=== PATIENT | female | born 1985 | race Caucasian/White ===

== ENCOUNTER 2016-10-27 23:46 | Inpatient (IN) | payer OTHER ==
[~2016-10-27] VITALS: Ht 170.2 cm; Wt 71.0 kg
[~2016-10-27 23:46] MED LIST: B12-1CHW PO; CALC600T21 PO; MULT1TAB18 PO; PRENTAB9 PO; VITA200016 PO
[2016-10-28] MEDS ORDERED: LR 1,000 ML IV SCH (01:01)
[2016-10-28] MEDS ORDERED: OXYTOCIN DRIP 30 UNITS in APPROPRIATE DILUENT 1 EA IV SCH ×2 (01:15→18:45)
[2016-10-28 01:32] LABS: MEAN CORPUSCULAR HEMOGLOBIN 34.7 pg (27.0-33.0); MEAN CORPUSCULAR HGB CONC 36.3 g/dl (32.0-36.5); MEAN CORPUSCULAR VOLUME 95.6 fl (80.0-96.0); RED CELL DISTRIBUTION WIDTH 12.6 % (11.5-14.5); WHITE BLOOD COUNT 8.3 K/mm3 (4.0-10.0)
[2016-10-28] MEDS ORDERED: PROMETHAZINE INJ 25 MG/ML VIAL (J2550) IV ONE (02:15)
[2016-10-28] MEDS ORDERED: BUTORPHANOL 2 MG/ML INJ (J0595) IV ONE ×2 (02:15→14:30)
--- NOTE | 2016-10-28 03:57 | HPE ---
DATE OF ADMISSION: 10/28/2016 31-year-old, (G) 2, para (P) 0-0-1-0 female at 39-1/7 weeks gestation by last menstrual period (LMP) consistent with 10-week ultrasound, estimated date of confinement (EDC) of 11/02/2016, presents with regular contractions every 5 minutes for the last several hours. She denies vaginal bleeding. There is good movement. COURSE: The patient initiated care at 10 weeks gestation on 04/06/2016. Her first trimester blood pressure was 110/70. Due to history of gastric bypass, she did not do diabetes testing. Testing for blood sugars randomly was normal. She had adequate growth ultrasounds during . MEDICAL HISTORY: Obesity. SURGICAL HISTORY: 1. Gastric bypass 2014. 2. Ankle surgery 2003. 3. Tonsillectomy 2002. ALLERGIES: PENICILLIN, BIAXIN. SOCIAL HISTORY: The patient is . She denies cigarettes, alcohol or drug use during . FAMILY HISTORY: Noncontributory. PHYSICAL EXAMINATION: VITAL SIGNS: Blood pressure 108/78, weight 206. She appears moderately uncomfortable. HEAD/NECK: Examination normal. LUNGS: Clear. HEART: Regular rate and rhythm. ABDOMEN: Nontender. Gravid. heart tones category 1. Contractions every 5-7 minutes. Cervix 3 cm, 70%, -2 station, vertex, posterior. EXTREMITIES: Nontender. LABORATORIES: Blood type O positive. Rubella nonimmune. Group B Streptococcus (GBS) negative on 10/02/2016. ASSESSMENT: 31-year-old (G) 2 para (P) 0-0-1-0 female at 39-1/7 weeks gestation presents in early labor. Patient is admitted on 10/28/2016.
[2016-10-28] MEDS ORDERED: SODIUM CHLORIDE NASAL 0.65% SPRAY BTL (OCEAN) PRN (07:30)
[2016-10-28] MEDS ORDERED: FENTANYL 2MCG/ML ROPIVACAINE 0.2% NACL 250 ML CADD As Ordered ONE (14:23)
[2016-10-28] MEDS ORDERED: NALOXONE INJ 0.4 MG/1 ML VIAL (J2310) IV PRN (15:45)
[2016-10-28] MEDS ORDERED: REFRIGERATOR IV KEYS XX PRN (15:45)
[2016-10-28] MEDS ORDERED: EPIDURAL/PCA KEYS XX PRN (15:45)
[2016-10-28] MEDS ORDERED: FENTANYL/ROPIVACAINE/NACL CADD 250 ML EPIDURAL SCH (15:45)
[2016-10-28] MEDS ORDERED: EPIDURAL COMMENT XX SCH (15:45)
[2016-10-28] MEDS ORDERED: LACTATED RINGER'S 1000 ML IV PRN (15:45)
[2016-10-28] MEDS ORDERED: ONDANSETRON 4MG/2ML VIAL (J2405) IV PRN ×2 (15:45→18:15)
[2016-10-28] MEDS ORDERED: diphenhydrAMINE INJ 50MG/ML VIAL (J1200) IV PRN (15:45)
[2016-10-28] MEDS ORDERED: ePHEDrine SULFATE 25 MG/5 ML(5MG/ML) SYRINGE IV PRN (15:45)
[2016-10-28] MEDS ORDERED: IBUPROFEN 800 MG TAB PO PRN (18:15)
[2016-10-28] MEDS ORDERED: ACETAMINOPHEN 500 MG TAB PO PRN (18:15)
[2016-10-28] MEDS ORDERED: MEASLES,MUMPS,RUBELLA VACCINE INJ (MMR-II) (90707) SC SCH (18:15)
[2016-10-28] MEDS ORDERED: RHOGAM 300 MCG (1500 IU) INJ (J2790) IM SCH (18:15)
[2016-10-28] MEDS ORDERED: DOCUSATE SODIUM 100 MG CAP PO PRN (18:15)
[2016-10-28] MEDS ORDERED: METHYLERGONOVINE MALEATE 0.2 MG TAB PO PRN (18:15)
[2016-10-28] MEDS ORDERED: DIBUCAINE 1% OINTMENT 30GM TOP PRN (18:15)
--- NOTE | 2016-10-28 18:28 | DN ---
DATE: 10/18/2016 PREDELIVERY DIAGNOSIS: 39 plus weeks, labor. POSTDELIVERY DIAGNOSIS: Delivered. PROCEDURE: Spontaneous vaginal delivery. MAT MAN: Dr. Jas Pineda. ANESTHESIA: Epidural. ESTIMATED BLOOD LOSS: 300 mL. FINDINGS: 7 pounds 12 ounces female with scores 7 and 8. DELIVERY SUMMARY: After a short second stage, the patient had spontaneous delivery of a 7 pound 12 ounce female with scores 7 and 8 under epidural anesthesia. Tight nuchal cord times one was clamped and cut on the perineum. Shoulders delivered spontaneously with ease. The infant was handed to the mother. Infant cried spontaneously. The placenta delivered easily and appeared intact. The patient received intravenous (IV) Pitocin immediately after delivery of placenta. Second-degree perineal laceration was repaired with 3-0 chromic in the usual fashion. Sponge and needle counts are correct.
[2016-10-28] MEDS ORDERED: OXYTOCIN DRIP 30 UNITS in APPROPRIATE DILUENT 1 EA IV ONE (18:45)
[2016-10-29 00:28] VITALS: BP 114/58
[2016-10-29 05:52] VITALS: BP 109/64
[2016-10-29] MEDS: PRENATAL VITAMIN TAB PO SCH (07:22)
[2016-10-29 18:28] VITALS: BP 124/76
[2016-10-30 06:00] VITALS: BP 107/70
[2016-10-30] MEDS: PRENATAL VITAMIN TAB PO SCH (08:29)
[2016-10-30] MEDS ORDERED: IBUP-1114 PO (09:44)
[2016-10-30] MEDS ORDERED: ACET50TA PO (09:44)
[2016-10-30] MEDS ORDERED: PRENTAB9 PO (09:44)
== END 2016-10-30 10:20 | disposition home or self-care (01) | DRG 560 ==
LOC: M LDO 23:46 → M LDI 10-28 00:41 → M OBS 10-28 19:41
PROVIDERS: ADMIT Specialist; ATTEND Specialist
PROC: 10E0XZZ Delivery of Products of Conception, External Approach (ICD-10-PCS; principal; 2016-10-28)
PROC: 0KQM0ZZ Repair Perineum Muscle, Open Approach (ICD-10-PCS; 2016-10-28)
PROC: 10907ZC Drainage of Amniotic Fluid, Therapeutic from Products of Conception, Via Natural or Artificial Opening (ICD-10-PCS; 2016-10-28)
DX: O99.844 Bariatric surgery status complicating childbirth (principal); Z37.0 Single live birth; Z3A.39 39 weeks gestation of pregnancy; O70.1 Second degree perineal laceration during delivery

== ENCOUNTER 2017-12-04 12:10 | Emergency (ER) | payer OTHER ==
[2017-12-04] MEDS: NS 1,000 ML IV (13:00)
[2017-12-04] MEDS: METOCLOPRAMIDE INJ 10MG/2ML VIAL (J2765) IV (13:00)
[2017-12-04 13:28] LABS: BASO % 0.3 % (0.0-1.0); HEMATOCRIT 33.4 % (36.0-47.0); HEMOGLOBIN 11.8 g/dl (12.0-16.0); LYMPH # 0.4 10^3/uL (1.5-4.5); LYMPH % 7.1 % (24.0-44.0); MEAN CORPUSCULAR HEMOGLOBIN 34.2 pg (27.0-33.0); MEAN CORPUSCULAR HGB CONC 35.3 g/dl (32.0-36.5); MEAN CORPUSCULAR VOLUME 96.8 fl (80.0-96.0); MONO # 0.3 10^3/uL (0.0-0.8); MONO % 5.1 % (0.0-5.0); NEUTROPHILS # 5.2 10^3/uL (1.8-7.7); NEUTROPHILS % 85.5 % (36.0-66.0); PLATELET COUNT, AUTOMATED 206 10^3/uL (150-450); RED BLOOD COUNT 3.45 10^6/uL (4.00-5.40); RED CELL DISTRIBUTION WIDTH 12.7 % (11.5-14.5); WHITE BLOOD COUNT 6.1 10^3/uL (4.0-10.0)
[2017-12-04 13:35] LABS: APPEARANCE, URINE HAZY (CLEAR); BACTERIA, URINE AUTO NEGATIVE (NEGATIVE); BILIRUBIN, URINE AUTO NEGATIVE (NEGATIVE); BLOOD, URINE BLOOD NEGATIVE (NEGATIVE); COLOR, URINE AMBER (YELLOW); GLUCOSE, URINE (UA) AUTO NEGATIVE (NEGATIVE); KETONE, URINE AUTO 2+ mg/dL (NEGATIVE); LEUKOCYTE ESTERASE, URINE AUTO TRACE (NEGATIVE); MUCUS, URINE SMALL (NEGATIVE); NITRITE, URINE AUTO NEGATIVE (NEGATIVE); PROTEIN, URINE AUTO 1+ mg/dL (NEGATIVE); RBC, URINE AUTO 4 /HPF (0-3); SPECIFIC GRAVITY URINE AUTO 1.028 (1.002-1.035); SQUAMOUS EPITHELIAL CELL UR AU 1 /HPF (0-6); WBC, URINE AUTO 5 /HPF (0-3)
[2017-12-04 14:05] LABS: ALBUMIN 2.9 GM/DL (3.2-5.2); ALBUMIN/GLOBULIN RATIO 0.94 (1.00-1.93); ALKALINE PHOSPHATASE 93 U/L (45-117); ALT/SGPT 15 U/L (12-78); ANION GAP 8 MEQ/L (8-16); AST/SGOT 12 U/L (7-37); BILIRUBIN,TOTAL 0.6 MG/DL (0.2-1.0); BLOOD UREA NITROGEN 7 MG/DL (7-18); CALCIUM LEVEL 8.4 MG/DL (8.5-10.1); CARBON DIOXIDE LEVEL 23 MEQ/L (21-32); CHLORIDE LEVEL 104 MEQ/L (98-107); CREATININE FOR GFR 0.46 MG/DL (0.55-1.30); GLOMERULAR FILTRATION RATE > 60.0 (>60); GLUCOSE, FASTING 80 MG/DL (70-100); POTASSIUM SERUM 3.8 MEQ/L (3.5-5.1); SODIUM LEVEL 135 MEQ/L (136-145)
[2017-12-04] MEDS: ONDANSETRON 4MG/2ML VIAL (J2405) IV (14:15)
== END 2017-12-04 15:27 | disposition home or self-care (01) ==
LOC: M ED 12:10
DX: O21.9 Vomiting of pregnancy, unspecified (principal); Z3A.01 Less than 8 weeks gestation of pregnancy; Z79.2 Long term (current) use of antibiotics; Z79.899 Other long term (current) drug therapy; Z88.1 Allergy status to other antibiotic agents; Z88.0 Allergy status to penicillin; Z87.09 Personal history of other diseases of the respiratory system; Z98.890 Other specified postprocedural states; Z98.0 Intestinal bypass and anastomosis status; Z87.891 Personal history of nicotine dependence
CPT/HCPCS: J2405

== ENCOUNTER → 2018-01-07 | Outpatient (REF) | payer OTHER | LOC: M LAB REF 16:49 | DX: Z34.83 Encounter for supervision of other normal pregnancy, third trimester (principal) ==

== ENCOUNTER 2018-01-10 15:20 | Inpatient (IN) | payer OTHER ==
[2018-01-10] MEDS: LACTATED RINGER'S 1000 ML IV (18:02)
[2018-01-10] MEDS: LR 1,000 ML IV (18:38)
[2018-01-10] MEDS: BETAMETHASONE SOLUSPAN 6MG/ML INJ 5ML (J0702) IM (18:38)
[2018-01-10 18:42] LABS: HEMATOCRIT 34.9 % (36.0-47.0); HEMOGLOBIN 12.1 g/dl (12.0-15.5); MEAN CORPUSCULAR HEMOGLOBIN 33.9 pg (27.0-33.0); MEAN CORPUSCULAR HGB CONC 34.7 g/dl (32.0-36.5); MEAN CORPUSCULAR VOLUME 97.8 fl (80.0-96.0); PLATELET COUNT, AUTOMATED 194 10^3/uL (150-450); RED BLOOD COUNT 3.57 10^6/uL (4.00-5.40); RED CELL DISTRIBUTION WIDTH 12.9 % (11.5-14.5)
[2018-01-10 19:09] LABS: AMPHETAMINES URINE REFLEX NEGATIVE (NEGATIVE); BARBITURATES URINE REFLEX NEGATIVE (NEGATIVE); BENZODIAZEPINES URINE REFLEX NEGATIVE (NEGATIVE); CANNABINOIDS URINE REFLEX NEGATIVE (NEGATIVE); COCAINE METABOLITE URINE REFLE NEGATIVE (NEGATIVE); METHADONE URINE REFLEX NEGATIVE (NEGATIVE); OPIATES URINE REFLEX NEGATIVE (NEGATIVE); PHENCYCLIDINE URINE REFLEX NEGATIVE (NEGATIVE)
[2018-01-10] MEDS: OXYTOCIN DRIP 30 UNITS in APPROPRIATE DILUENT 1 EA IV (19:12)
[2018-01-11] MEDS ORDERED: FENTANYL 2MCG/ML ROPIVACAINE 0.2% IN 0.9% NACL 200ML IVBAG As Ordered (00:19)
[2018-01-11] MEDS ORDERED: EPIDURAL COMMENT XX (05:45)
[2018-01-11] MEDS ORDERED: NALOXONE INJ 0.4 MG/1 ML VIAL (J2310) IV (05:45)
[2018-01-11] MEDS ORDERED: ONDANSETRON 4MG/2ML VIAL (J2405) IV (05:45)
[2018-01-11] MEDS ORDERED: FENTANYL/ROPIVACAINE/NACL BAG 200 ML EPIDURAL (05:45)
[2018-01-11] MEDS ORDERED: ePHEDrine SULFATE 25 MG/5 ML(5MG/ML) SYRINGE IV (05:45)
[2018-01-11] MEDS ORDERED: REFRIGERATOR IV KEYS XX (05:45)
[2018-01-11] MEDS ORDERED: EPIDURAL/PCA KEYS XX (05:45)
[2018-01-11] MEDS ORDERED: diphenhydrAMINE INJ 50MG/ML VIAL (J1200) IV (05:45)
[2018-01-11] MEDS ORDERED: LACTATED RINGER'S 1000 ML IV (05:45)
[2018-01-11] MEDS: OXYTOCIN DRIP 30 UNITS in APPROPRIATE DILUENT 1 EA IV (08:00)
[2018-01-11 08:16] LABS: CORD GAS ABE V -2.5; CORD GAS HCO3 V 21.5 MEQ/L; CORD GAS O2 SAT V 63.4 %; CORD GAS PCO2 V 35.5 mmHg; CORD GAS PH V 7.401 UNITS; CORD GAS PO2 V 23.1 mmHg; CORD GAS SBC V 21.5 MEQ/L; CORD GAS TCO2 V 22.6 MEQ/L
[2018-01-11 08:17] LABS: CORD GAS ABE A -2.7; CORD GAS HCO3 A 24.1 MEQ/L; CORD GAS O2 SAT A 51.4 %; CORD GAS PO2 A 22.5 mmHg; CORD GAS TCO2 A 25.6 MEQ/L
[2018-01-11] MEDS ORDERED: DOCUSATE SODIUM 100 MG CAP PO (08:45)
[2018-01-11] MEDS ORDERED: DIBUCAINE 1% OINTMENT 30GM TOP (08:45)
[2018-01-11] MEDS ORDERED: ACETAMINOPHEN 500 MG TAB PO (08:45)
[2018-01-11] MEDS ORDERED: MEASLES,MUMPS,RUBELLA VACCINE INJ (MMR-II) (90707) SC (08:45)
[2018-01-11] MEDS ORDERED: METHYLERGONOVINE MALEATE 0.2 MG TAB PO (08:45)
[2018-01-11] MEDS ORDERED: RHOGAM 300 MCG (1500 IU) INJ (J2790) IM (08:45)
[2018-01-11] MEDS ORDERED: IBUPROFEN 800 MG TAB PO (08:45)
[2018-01-11] MEDS: PRENATAL VITAMINS CHEWABLE TABLET PO (09:00)
[2018-01-12] MEDS: PRENATAL VITAMINS CHEWABLE TABLET PO (07:34)
[2018-01-13] MEDS: PRENATAL VITAMINS CHEWABLE TABLET PO (07:54)
== END 2018-01-13 10:35 | disposition home or self-care (01) | DRG 560 ==
LOC: M LDO 15:20 → M LDI 18:02 → M OBS 01-11 10:04
PROVIDERS: Obstetrics & Gynecology
PROC: 3E033VJ Introduction of Other Hormone into Peripheral Vein, Percutaneous Approach (ICD-10-PCS; principal; 2018-01-10)
PROC: 10907ZC Drainage of Amniotic Fluid, Therapeutic from Products of Conception, Via Natural or Artificial Opening (ICD-10-PCS; 2018-01-11)
PROC: 10E0XZZ Delivery of Products of Conception, External Approach (ICD-10-PCS; 2018-01-11)
DX: O41.03X0 Oligohydramnios, third trimester, not applicable or unspecified (principal); O60.14X0 Preterm labor third trimester with preterm delivery third trimester, not applicable or unspecified; Z37.0 Single live birth; Z3A.36 36 weeks gestation of pregnancy; Z98.84 Bariatric surgery status; O36.8130 Decreased fetal movements, third trimester, not applicable or unspecified; Z90.49 Acquired absence of other specified parts of digestive tract; Z88.0 Allergy status to penicillin; Z88.1 Allergy status to other antibiotic agents

== ENCOUNTER 2019-10-06 10:30 | Emergency (ER) | payer BC, OTHER ==
[~2019-10-06] VITALS: Ht 170.2 cm; Wt 100.2 kg
[~2019-10-06 10:30] MED LIST changes: -CALC600T21 PO; +CALC600T60 PO; +CEFD1CAP8 PO; +IBUP-1114 PO; +MAPA500T2 PO; +OSEL75CA2 PO; +ZITHTAB PO; +ZOFR4TAB14 PO; +[UNRECOGNIZED DRUG - CODE] PO
[2019-10-06 11:56] LABS: HEMATOCRIT 44.8 % (36.0-47.0); HEMOGLOBIN 14.7 g/dl (12.0-15.5); MEAN CORPUSCULAR HEMOGLOBIN 31.7 pg (27.0-33.0); MEAN CORPUSCULAR HGB CONC 32.8 g/dl (32.0-36.5); MEAN CORPUSCULAR VOLUME 96.6 fl (80.0-96.0); PLATELET COUNT, AUTOMATED 356 10^3/uL (150-450); RED BLOOD COUNT 4.64 10^6/uL (4.00-5.40); WHITE BLOOD COUNT 9.3 10^3/uL (4.0-10.0)
[2019-10-06 12:23] LABS: BLOOD UREA NITROGEN 7 MG/DL (7-18); CALCIUM LEVEL 9.2 MG/DL (8.5-10.1); CARBON DIOXIDE LEVEL 23 MEQ/L (21-32); CHLORIDE LEVEL 106 MEQ/L (98-107); CREATININE FOR GFR 0.72 MG/DL (0.55-1.30); GLOMERULAR FILTRATION RATE > 60.0 (>60); GLUCOSE, FASTING 80 MG/DL (70-100); HCG, SERUM QUANTITATIVE 51 MIU/ML; POTASSIUM SERUM 3.7 MEQ/L (3.5-5.1); SODIUM LEVEL 139 MEQ/L (136-145)
--- NOTE | 2019-10-06 12:51 | REP ---
Clinical: Positive test. Vaginal bleeding. Dating and viability. Technique: Transabdominal and transvaginal first trimester obstetrical ultrasound with color Doppler evaluation. Findings: Heterogeneous anteverted uterus measures 8.5 x 4.6 x 5.0 cm. Endometrial complex measures up to 12 mm. No intrauterine identified. Bilateral ovaries are essentially normal in appearance. Right ovary measures 2.3 x 2.6 x 2.9 cm; RI equals 0.61. Left ovary measures 2.5 x 1.8 x 2.1 cm with 1.1 cm paraovarian cyst; RI equal 0.53. No pelvic fluid or adnexal mass lesion. Impression: No intrauterine identified. Differential diagnosis includes early , missed , and less likely ectopic cannot be excluded. Correlation with serial HCG levels recommended. Electronically Signed by Pelon Rojo MD 10/06/2019 12:42 P
[2019-10-06 14:04] VITALS: BP 133/74
[2019-10-06 14:59] LABS: CHLAMYDIA DNA AMPLIFICATION NEGATIVE (NEGATIVE); GC DNA AMPLIFICATION NEGATIVE (NEGATIVE)
== END 2019-10-06 14:05 | disposition home or self-care (01) ==
LOC: M ED 10:30
DX: O20.0 Threatened abortion (principal); Z87.59 Personal history of other complications of pregnancy, childbirth and the puerperium; E28.2 Polycystic ovarian syndrome; Z87.448 Personal history of other diseases of urinary system; O99.841 Bariatric surgery status complicating pregnancy, first trimester; Z3A.01 Less than 8 weeks gestation of pregnancy

== ENCOUNTER → 2019-10-09 | Outpatient (CLI) | payer BC | LOC: M PLALAB 08:18 | PROVIDERS: ATTEND Advanced Practice Midwife | DX: O20.0 Threatened abortion (principal); Z3A.00 Weeks of gestation of pregnancy not specified ==

== ENCOUNTER → 2019-10-28 | Outpatient (CLI) | payer BC | LOC: M PLALAB 14:22 | PROVIDERS: ATTEND Advanced Practice Midwife | DX: O03.9 Complete or unspecified spontaneous abortion without complication (principal) ==

== ENCOUNTER → 2020-04-14 | Outpatient (CLI) | payer BC | LOC: M PLALAB 12:04 | PROVIDERS: ATTEND Family Medicine | DX: Z34.90 Encounter for supervision of normal pregnancy, unspecified, unspecified trimester (principal) ==

== ENCOUNTER → 2020-05-19 | Outpatient (REF) | payer BC ==
[2020-06-17 22:42] LABS: BASO # 0.1 10^3/uL (0.0-0.2); BASO % 0.5 % (0.0-1.0); EOS # 0.1 10^3/uL (0.0-0.5); EOS % 1.2 % (0.0-3.0); HEMATOCRIT 40.7 % (36.0-47.0); HEMOGLOBIN 13.4 g/dl (12.0-15.5); LYMPH # 2.6 10^3/uL (1.5-5.0); LYMPH % 24.8 % (24.0-44.0); MEAN CORPUSCULAR HEMOGLOBIN 32.4 pg (27.0-33.0); MEAN CORPUSCULAR HGB CONC 32.9 g/dl (32.0-36.5); MEAN CORPUSCULAR VOLUME 98.3 fl (80.0-96.0); MONO # 0.8 10^3/uL (0.0-0.8); MONO % 7.2 % (0.0-5.0); NEUTROPHILS # 6.9 10^3/uL (1.5-8.5); PLATELET COUNT, AUTOMATED 321 10^3/uL (150-450); RED BLOOD COUNT 4.14 10^6/uL (4.00-5.40); WHITE BLOOD COUNT 10.4 10^3/uL (4.0-10.0)
[2020-06-23 12:22] LABS: CHLAMYDIA DNA AMPLIFICATION NEGATIVE (NEGATIVE); GC DNA AMPLIFICATION NEGATIVE (NEGATIVE)
[2020-07-03 12:41] LABS: FREE T4 1.19 NG/DL (0.76-1.46); HEPATITIS B SURFACE ANTIGEN NEGATIVE (NEGATIVE); HEPATITIS C VIRUS ABY INDEX 0.1 INDEX (<0.8); HIV 1&2 SCREEN CENTAUR NEGATIVE (NEGATIVE); THYROID STIMULATING HORMONE 0.642 uIU/ML (0.358-3.740)
== END ==
LOC: M SFHCWAGY 08:28
PROVIDERS: ATTEND Advanced Practice Midwife
DX: Z34.90 Encounter for supervision of normal pregnancy, unspecified, unspecified trimester (principal); Z3A.00 Weeks of gestation of pregnancy not specified

== ENCOUNTER → 2020-06-03 | Outpatient (REF) | payer BC | LOC: M LAB REF 10:00 | PROVIDERS: ATTEND Advanced Practice Midwife | DX: Z34.01 Encounter for supervision of normal first pregnancy, first trimester (principal) ==

== ENCOUNTER → 2020-07-16 | Outpatient (CLI) | payer BC ==
--- NOTE | 2020-07-26 15:13 | REP ---
OBSTETRIC SONOGRAPHY HISTORY: Supervision of for anatomy. FINDINGS: Scanning demonstrates a single living intrauterine gestation in a breech lie. The placenta is right anterior grade 1 without evidence of previa. Amniotic fluid is subjectively normal. heart rate is recorded at 142 beats per minute. Closed cervical length is 3.5 cm viewed transabdominally. No anomaly is seen. The following anatomic structures are felt to be unremarkable: The cranium and intracranial anatomy, nuchal fold, face and profile, nose and lips, four chamber heart with left and right ventricular outflow tract views, diaphragm, left-sided stomach, abdominal wall cord insertion, right and left kidneys, urinary bladder, spine, upper and lower extremities, three vessel cord. BIOMETRY CHART: BPD 4.2 cm 18 weeks 4 days Head circumference 14.5 cm 17 weeks 5 days Abdominal circumference 13.2 cm 18 weeks 5 days Femur length 2.7 cm 18 weeks 0 days Humeral length 2.7 cm 18 weeks 5 days AC/HC ratio 1.10 Normal Cephalic index 0.83 Normal Estimated weight 235 g, 0 pounds 8 ounces 75th percentile for 17 weeks 6 days IMPRESSION: Viable single intrauterine gestation at 18 weeks 3 days by todays composite sonographic criteria. Estimated date of delivery (MATTHEW) by todays sonography 12/14/2020. MTDD
== END ==
LOC: M WHC 08:44
PROVIDERS: ATTEND Advanced Practice Midwife
DX: O32.1XX0 Maternal care for breech presentation, not applicable or unspecified (principal); Z36.89 Encounter for other specified antenatal screening; Z3A.18 18 weeks gestation of pregnancy

== ENCOUNTER → 2020-08-06 | Outpatient (REF) | payer BC | LOC: M PLALAB 11:56 | PROVIDERS: ATTEND Advanced Practice Midwife | DX: Z34.92 Encounter for supervision of normal pregnancy, unspecified, second trimester (principal) ==

== ENCOUNTER → 2020-09-17 | Outpatient (CLI) | payer BC ==
--- NOTE | 2020-09-17 15:55 | REP ---
INDICATION: BARIATRIC SURGERY STATUS,GROWTH. TECHNIQUE: Transabdominal scanning FINDINGS: Multiple ultrasonographic images of the gravid uterus shows a single living intrauterine gestation in the cephalic presentation. Doppler interrogation of the heart shows a heart rate of 146 beats per minute. The placenta is anterior and not low-lying. The cervix measures 3.4 cm in length and is closed. The subjective amniotic fluid volume is within normal limits. The calculated amniotic fluid index is 13.0 within expected range 9.5 to 22.6. BPD 6.6 cm 26 weeks 5 days HC 24.6 cm 26 weeks 5 days AC 23.6 cm 27 weeks 6 days FL 5.0 cm 27 weeks 0 days Estimated weight is 1068 g which is at the 60th percentile for a 26 week 6 day gestational age. Full anatomical screen was performed and prior exams. IMPRESSION: Single living intrauterine gestation as described above with an estimated gestational age of 27 weeks 0 days via composite criteria at an estimated dated liver of 12/17/2020 by today's exam. <Electronically signed by Fausto Vick > 09/17/20 [id number]
== END ==
LOC: M WHC 14:58
PROVIDERS: ATTEND Obstetrics & Gynecology
DX: O99.842 Bariatric surgery status complicating pregnancy, second trimester (principal); Z3A.27 27 weeks gestation of pregnancy

== ENCOUNTER → 2020-09-17 | Outpatient (REF) | payer BC ==
[2020-09-17 17:11] LABS: HEMATOCRIT 33.3 % (36.0-47.0); HEMOGLOBIN 11.1 g/dl (12.0-15.5); MEAN CORPUSCULAR HEMOGLOBIN 33.7 pg (27.0-33.0); MEAN CORPUSCULAR HGB CONC 33.3 g/dl (32.0-36.5); MEAN CORPUSCULAR VOLUME 101.2 fl (80.0-96.0); PLATELET COUNT, AUTOMATED 239 10^3/uL (150-450); RED BLOOD COUNT 3.29 10^6/uL (4.00-5.40)
[2020-09-17 17:16] LABS: HEMOGLOBIN A1c 4.7 %
[2020-09-17 17:27] LABS: ALBUMIN 2.8 GM/DL (3.2-5.2); ALT/SGPT 21 U/L (12-78); BILIRUBIN,TOTAL 0.3 MG/DL (0.2-1.0); BLOOD UREA NITROGEN 11 MG/DL (7-18); CALCIUM LEVEL 9.3 MG/DL (8.5-10.1); CARBON DIOXIDE LEVEL 25 MEQ/L (21-32); CHLORIDE LEVEL 106 MEQ/L (98-107); CREATININE FOR GFR 0.43 MG/DL (0.55-1.30); FERRITIN 25 NG/ML (8-252); GLOMERULAR FILTRATION RATE > 60.0 (>60); GLUCOSE, FASTING 87 MG/DL (70-100); SODIUM LEVEL 137 MEQ/L (136-145)
[2020-09-17 17:31] LABS: FOLATE 17.8 NG/ML (>5.4); TOTAL 25(OH) VITAMIN D 34.8 NG/ML (30.0-100.0)
[2020-09-22 11:31] LABS: DRVV SCREEN 39.4 SEC
== END ==
LOC: M PLALAB 14:38
PROVIDERS: ATTEND Advanced Practice Midwife
DX: O99.842 Bariatric surgery status complicating pregnancy, second trimester (principal)

== ENCOUNTER → 2020-09-29 | Outpatient (REF) | payer BC | LOC: M LABDRAWC 15:44 | PROVIDERS: ATTEND Physician Assistant | DX: Z78.9 Other specified health status (principal) ==

== ENCOUNTER 2020-10-19 09:24 | Outpatient (CLI) | payer BC ==
[2020-10-19 09:43] VITALS: BP 118/65
--- NOTE | 2020-10-19 11:16 | IPNPDOC ---
Obstetrical Progress Note Date of Service Oct 19, 2020 Subjective Subjective/HPI: 35-year-old G5, P1-1-2-2 at 31+3 weeks' gestation. Final EDC of 12/18/2020 by LMP consistent with a first trimester ultrasound. Presents today complaining of uterine cramping/contraction, questionable loss of fluid. Denies any vaginal bleeding. 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 She also doesn't know whether or not the vaginal leakage/dampness is amniotic fluid. Reports regular movement. Denies headache, shortness of breath, chest pain. course is complicated by history of gastric bypass and advanced maternal age Objective: Normotensive. Normal heart rate. Afebrile Abdomen soft, nontender, nondistended. Uterine fundus , nontender. Extremities nonedematous, nontender Pelvic: Sterile speculum exam reveals no pooling, no vaginal bleeding, no abnormal discharge or foul odor. Negative nitrazine, negative ferning. Sterile vaginal/cervical exam reveals a closed long thick cervix. Transvaginal ultrasound, limited: Cervical length is greater than 3.0 cm (average length obtained 4.5 cm with no funneling or dynamic changes) EFM: Reactive, moderate variability, no decelerations [place]: Irregular rare contractions Assessment/plan: 35-year-old G5, P1, at 31+3 weeks' gestation. No evidence of premature ruptured membranes, active labor, advanced cervical dilation, or shortened cervical length. Current maternal and condition is reassuring. -Routine third trimester precautions were reviewed -Follow-up in the office as scheduled Objective Vital Signs Date Time Temp Pulse Resp B/P (MAP) Pulse Ox O2 Delivery O2 Flow Rate FiO2 10/19/20 09:43 90 118/65 (82) 10/19/20 09:42 97.5 18 MIR BRASWELL DO Oct 19, 2020 11:16
== END 2020-10-19 11:05 | disposition home or self-care (01) ==
LOC: M LDO 09:24
PROVIDERS: ATTEND Obstetrics & Gynecology
DX: O26.893 Other specified pregnancy related conditions, third trimester (principal); O99.843 Bariatric surgery status complicating pregnancy, third trimester; Z3A.31 31 weeks gestation of pregnancy; O09.523 Supervision of elderly multigravida, third trimester
CPT/HCPCS: 59025; 76815; G0378; G0463

== ENCOUNTER 2020-11-15 16:45 | Outpatient (CLI) | payer BC, SELFPAY ==
[~2020-11-15] VITALS: Ht 170.2 cm; Wt 103.5 kg
[2020-11-15 17:01] VITALS: BP 113/72
[2020-11-15] MEDS ORDERED: CLAR10CA3 PO (17:05)
[2020-11-15 18:29] VITALS: BP 118/76
--- NOTE | 2020-11-15 18:37 | IPNPDOC ---
Text Note Date of Service The patient was seen on 11/15/20. NOTE Outpatient Subjective: Shonna is a 35 y/o at 35.2 weeks, MATTHEW 12/18/2020 by LMP on 03/13/2020. She started care at [facility] in the first trimester. complicated by history of gastric bypass. Presents to L&D today with a c/o irregular cramping and bilateral sharp hip pain throughout the day. Denies urgency, frequency, hematuria. Denies LOF, vaginal bleeding. Reports active movement. 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 Respiratory: Respirations regular, no accessory muscle use. Abdomen: Gravid, soft non-tender, no distention. Genitourinary: Negative CVA tenderness. Bladder non-palpable, nontender. SVE: Closed/Thick/High, posterior, medium consistency, no bloody show on glove, unchanged after 2 hours. Bedside U/S: TIN: 10.84cm, cephalic, OP, movement present Fetus: 135bpm, moderate variability, positive accelerations, no decelerations, Category 1 FHT; After 2 hours Category FHT remains with baseline 140bpm, moderate variability, positive accelerations, and no decelerations. [place]: irregular every 4-10, lasting 20-60 seconds, mild on palpation, resting tone soft; After 2 hours frequency decreased to >10 minutes apart with irritability UA results listed below Assessment: SIUP at 35.2 weeks. Round Ligament Discomfort. Category 1 FHT. Not in active labor. Not SROM. Plan: GBS Culture collected UA NST PO Hydrate, Regular diet Bedside U/S Discharge home on labor precautions. Reviewed access to care and precautions including vaginal bleeding, LOF, regular contractions, decreased movement, abdominal trauma. Reviewed to keep all appointments. Note given for out of work tomorrow. VS,Fishbone, I+O VS, Fishbone, I+O Vital Signs Label Value Date Time Patient Temperature 97.6 degrees F 11/15/201952 Temperature Source Tympanic 11/15/201952 Pulse 105 11/15/201952 Respiratory Rate 18 bpm 11/15/201952 Blood Pressure Assessment 123/67 (85) 11/15/201952 Source Automatic Cuff (NIBP) Vital Signs Label Value Date Time Blood Pressure Assessment 113/72 (86) 11/15/20 170 Source Automatic Cuff (NIBP) Respiratory Rate 20 bpm 11/15/201700 Pulse 86 11/15/201700 Pulse 88 11/15/201828 Blood Pressure Assessment 118/76 (90) 11/15/201828 Source Automatic Cuff (NIBP) Item Value Date Time Urine Color STRAW 11/15/201809 Urine Appearance CLEAR 11/15/201809 Urine pH 7.0 UNITS 11/15/201809 Urine Specific [place] 1.004 11/15/20 181 Urine Protein NEGATIVE mg/dL 11/15/201809 Urine Glucose (Auto)(UA) NEGATIVE mg/dL 11/15/201809 Urine Ketones (Auto) 1+ mg/dL H 11/15/201809 Urine Blood NEGATIVE 11/15/201809 Urine Nitrite NEGATIVE 11/15/201809 Urine Bilirubin NEGATIVE 11/15/201809 Urine Urobilinogen 0.2 mg/dL 11/15/201809 Urine Leukocyte Esterase (Auto) TRACE H 11/15/201809 Urine WBC (Auto) 0 /HPF 11/15/201809 Urine RBC (Auto) 1 /HPF 11/15/201809 Urine Hyaline Casts (Auto) 0 /LPF 11/15/201809 Urine Bacteria (Auto) 1+ H 11/15/201809 Urine Squamous Epithelial Cells 0 /HPF 11/15/201809 DAVIS REEVES CNM Nov 15, 2020 18:37
[2020-11-15 18:48] LABS: APPEARANCE, URINE CLEAR (CLEAR); BACTERIA, URINE AUTO 1+ (NEGATIVE); BILIRUBIN, URINE AUTO NEGATIVE (NEGATIVE); BLOOD, URINE BLOOD NEGATIVE (NEGATIVE); COLOR, URINE STRAW (YELLOW); GLUCOSE, URINE (UA) AUTO NEGATIVE (NEGATIVE); KETONE, URINE AUTO 1+ mg/dL (NEGATIVE); LEUKOCYTE ESTERASE, URINE AUTO TRACE (NEGATIVE); NITRITE, URINE AUTO NEGATIVE (NEGATIVE); PROTEIN, URINE AUTO NEGATIVE (NEGATIVE); RBC, URINE AUTO 1 /HPF (0-3); SPECIFIC GRAVITY URINE AUTO 1.004 (1.002-1.035); SQUAMOUS EPITHELIAL CELL UR AU 0 /HPF (0-6); UROBILINOGEN, URINE AUTO 0.2 mg/dL (0.0-2.0); WBC, URINE AUTO 0 /HPF (0-3)
[2020-11-15 19:53] VITALS: BP 123/67
== END 2020-11-15 20:25 | disposition home or self-care (01) ==
LOC: M LDO 16:45
PROVIDERS: ATTEND Advanced Practice Midwife
DX: O26.893 Other specified pregnancy related conditions, third trimester (principal); R10.2 Pelvic and perineal pain; Z3A.35 35 weeks gestation of pregnancy
CPT/HCPCS: 59025; 76815; 81001; 87081; G0378; G0463

== ENCOUNTER → 2020-11-22 | Outpatient (CLI) | payer SELFPAY ==
[~2020-11-22] MED LIST changes: +CLAR10CA3 PO
== END ==
LOC: M LABSMTC 10:12
PROVIDERS: ATTEND Pediatrics
DX: Z20.822 Contact with and (suspected) exposure to COVID-19 (principal)

== ENCOUNTER 2020-11-28 18:32 | Outpatient (CLI) | payer BC, SELFPAY ==
[~2020-11-28] VITALS: Ht 170.2 cm; Wt 103.9 kg
[2020-11-28 18:48] VITALS: BP 113/72
[2020-11-28] MEDS ORDERED: THERTAB52 PO (18:58)
[2020-11-28] MEDS ORDERED: ACET-897 PO (18:58)
--- NOTE | 2020-11-28 20:14 | IPNPDOC ---
Obstetrical Progress Note Date of Service Nov 28, 2020 Subjective 35yo at 37+1 weeks EGA. Presents for a ROM/labor check. Reports frequent, intermittently painful uterine contractions. Also has had more vaginal discharge than usual. No large loss of fluid/continuous flow or vaginal bleeding. Reports regular, frequent movement. ROS: No LARIOS, visual changes, RUQ pain, sob, cp, n/v/f/c. 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 Neg Nitrazine/ferning. SVE: 1 cm, 50 %, -3, cephalic, intact, small amount of bloody show; minimal roll changer several hours. EFM: Cat I / Reactive [place]: contractions every 3-5min; palpated as mild. A/P: 35 yo at 37+1 weeks EGA. No evidence of active labor or ROM. Reassuring maternal and status. -Routine third trimester precautions given. -Follow up in office as scheduled. Sandip Mendoza DO FACOG. Objective Vital Signs Date Time Temp Pulse Resp B/P (MAP) Pulse Ox O2 Delivery O2 Flow Rate FiO2 11/28/20 18:48 97.4 109 20 113/72 (86) 97 Room Air MIR MENDOZA DO Nov 28, 2020 20:15
== END 2020-11-28 20:05 | disposition home or self-care (01) ==
LOC: M LDO 18:32
PROVIDERS: ATTEND Obstetrics & Gynecology
DX: O47.1 False labor at or after 37 completed weeks of gestation (principal); O09.523 Supervision of elderly multigravida, third trimester; O99.843 Bariatric surgery status complicating pregnancy, third trimester; Z3A.37 37 weeks gestation of pregnancy
CPT/HCPCS: 59025; G0378; G0463

== ENCOUNTER 2020-12-03 16:33 | Outpatient (CLI) | payer BC ==
[~2020-12-03] VITALS: Ht 165.1 cm; Wt 104.7 kg
[~2020-12-03 16:33] MED LIST changes: +ACET-897 PO; +THERTAB52 PO
[2020-12-03 16:48] VITALS: BP 129/70
--- NOTE | 2020-12-03 17:22 | IPNPDOC ---
Text Note Date of Service The patient was seen on 12/03/20. NOTE Outpatient 35yo MATTHEW 12/18/2020. Presents @ 37w6d with complaints of LOF @ 1130 and onset of contractions "in my back." Denies bleeding. Reports fetus is active History significant for previous delivery @ 36.5 wks for oligohydramnios and Cat II tracing. Abdomen soft, obese, gravid. Uterine irritability noted on monitor, mild. FH 135, minimal/moderate variability, no accels at present Spec exam, moderate cervical mucous. Neg pool, neg valsalva, inconclusive nitrazine, neg fern SVE /-3. Will observe for reassuring status. Then ambulate and reassess in a few hours. Adelia Bee CNM Dec 03, 2020 17:22
--- NOTE | 2020-12-03 18:20 | REPVR ---
PROCEDURE INFORMATION: Exam: US ; Follow up Exam date and time: 12/03/2020 6:12 PM Age: 35 years old Clinical indication: Lmp or gestational age (in weeks): 37; Labor and delivery abnormalities; False labor; ; Additional info: Growth, tin TECHNIQUE: Imaging protocol: Transabdominal ultrasound of the uterus, real time with image documentation. Follow-up (eg, re-evaluation of size by measuring standard growth parameters and amniotic fluid volume, re-evaluation of organ system(s) suspected or confirmed to be abnormal on a previous scan). COMPARISON: OBS LIMITED US 09/17/2020 3:08 PM FINDINGS: Gestation: Intrauterine gestation. heart rate: heart rate 136 bpm. Presentation: Single living fetus in cephalic presentation. Amniotic fluid: Amniotic fluid volume normal. TIN 19.9. BIOMETRY: Gestational age (AUA): Gestational age based on LMP of 03/13/2020 and initial ultrasound is 37 weeks 6 days. Average ultrasound measurements on today's exam correspond to 39 weeks 6 days. Estimated weight: Estimated weight is 3902 g (greater than 90th percentile). Biparietal diameter: BPD measures 9.8 cm Head circumference: Head circumference 35.2 cm Abdominal circumference: Abdominal circumference 36.2 cm Femur length: Femur length 7.4 cm. MATERNAL: Cervix: Cervix measures 5.4 cm without bulging membranes or funneling. IMPRESSION: Large for dates fetus at 37 weeks 6 days with average ultrasound measurements above the main and and estimated weight in the 90th percentile. Electronically signed by: Marcial Galdamez On 12/03/2020 18:20:48 PM
--- NOTE | 2020-12-03 18:47 | IPNPDOC ---
Text Note Date of Service The patient was seen on 12/03/20. NOTE Outpatient BPP 8/8. TIN 19.9. EFW 3902gm, >90%. Pad remains dry. SVE unchanged. Discharged home with instructions. pt is scheduled for IOL 12/13. Keep appt next week. VS,Fishbone, I+O VS, Fishbone, I+O Vital Signs Date Time Temp Pulse Resp B/P (MAP) Pulse Ox O2 Delivery O2 Flow Rate FiO2 12/03/20 16:48 98.0 97 20 129/70 (89) Adelia Bee CNM Dec 03, 2020 18:47
== END 2020-12-03 18:38 | disposition home or self-care (01) ==
LOC: M LDO 16:33
PROVIDERS: ATTEND Advanced Practice Midwife
DX: O26.893 Other specified pregnancy related conditions, third trimester (principal); Z3A.37 37 weeks gestation of pregnancy
CPT/HCPCS: 59025; 76816; 76819; 76820; G0378; G0463

== ENCOUNTER → 2020-12-07 | Outpatient (CLI) | payer SELFPAY | LOC: M LABSMTC 09:36 | PROVIDERS: ATTEND Pediatrics | DX: Z11.52 Encounter for screening for COVID-19 (principal) ==

== ENCOUNTER 2020-12-08 19:09 | Inpatient (IN) | payer BC ==
[~2020-12-08] VITALS: Ht 170.2 cm; Wt 103.7 kg
[2020-12-08] VITALS (19 sets, daily range): BP systolic 86–130; BP diastolic 53–81
[2020-12-08] MEDS ORDERED: LR 1,000 ML IV SCH (20:51)
[2020-12-08] MEDS ORDERED: LACTATED RINGER'S 1000 ML IV STA (20:51)
[2020-12-08] MEDS ORDERED: OXYTOCIN DRIP 30 UNITS in IV 1 EA IV SCH (20:55)
--- NOTE | 2020-12-08 21:18 | HPEPDOC ---
Obstetrical History & Physical General Date of Admission Dec 08, 2020 at 20:51 Primary Care Physician: DAVIS REEVES CNM History of Present Illness Sohnna is a 35-year-old female who is a at 38.4 weeks gestation with an MATTHEW of 12/18/20 based off of her LMP and consistent with her first trimester ultrasound. She initiated care in her first trimester with [facility]. Her has been complicated by a history of gastric bypass and advanced maternal age. She presents with complaints of contractions that are about every 3 minutes with back pain. She denies leaking of fluid or vaginal bleeding. She reports active movement. She was seen 5 days ago and her cervical exam was . Chief Complaint: Active Labor Information Provided By: Patient Age: 35 : 5 Term: 1 Pre-term: 1 Abortions: 2 Livin Care Care: Good Care Dating Final EDC: Dec 18, 2020 Final EDC by: LMP EGA at Admission: 38.4 Antepartum Course Diagnos(e)s AMA Height (inches): 67 Admission Weight (lbs.): 228 Past Medical History Past Obstetrical History #1: Past Obstetrical History: Primgravida Date of Delivery: Oct 28, 2016 Gestation: 39 Type of Delivery: Spontaneous Vaginal Del. Sex of : Female (weight 6 lbs 4 oz) Past Obstetrical History #2: Past Obstetrical History: Multigravida Date of Delivery: Jan 11, 2018 Gestation: 36.5 Type of Delivery: Spontaneous Vaginal Del. Sex of : Female (weight 6 lbs 4 oz) Complications: Yes ( with Category II FHR and oligohydramnios) MOLDER CLOSED MOLDS History: Spontaneous (x2) Past Medical History Surgical History: Gallbladder, Tonsilectomy, Other (gastric bypass and ankle surgery) Family History Significant Family History: Cancer (prostate and lung ), Hypertension, Other (hypothyroidism) Social History Marital Status: Family situation: Spouse/partner home * Smoker: non-smoker Alcohol: Denies Drugs: denies Abuse Violence Screening Have you been hit/kicked/slapp: No Have you been sexually assault: No Allergies Coded Allergies: clarithromycin (Verified Allergy, Severe, 11/28/20) anaphalaxis Penicillins (Verified Allergy, Intermediate, 11/28/20) rash/hives amoxicillin (Verified Allergy, Intermediate, 11/28/20) rash Medications Scheduled Loratadine (Claritin) 10 Mg Capsule, 10 MG PO DAILY for allergy symptoms Multivitamin,Therapeutic (Thera-Tabs) 1 Each Tablet, 1 TAB PO DAILY No.137/Iron/Folic Acd ( Vitamin Tablet) 1 Tab Tab, 1 TAB PO DAILY Physical Examination Physical Examination GENERAL: Alert and oriented times three. BREAST: . ABDOMEN: Gravid and non-tender to touch. Soft with palpation. FETUS: Is vertex (VTX) by sterile vaginal examination (SVE), fetus is vertex (VTX) by Hema. EFW 3900 grams. LUNGS: Regular rate between contractions without use of accessory muscles. EXTREMITIES: Generalized edema. No clonus. Deep tendon reflexes (DTRs) + 2. Vital Signs/I&O 128/71 BP; HR: 87 Laboratory Data 24H LABS Laboratory Tests 2 12/08/20 20:53: Serology Scanned Report Hepatitis B Testing Urine Culture: No Growth Pertinent Laboratoy Data Blood Type: O+ RBC Antibody Screen: Negative HIV: Negative Hepatitis B: Negative Hepatitis C: Negative Rapid Plasma Reagin: Nonreactive Rubella: Immune Chlamydia/Gonorrhea: Negative Group B Streptococcus: Negative Vaginal Examination Dilation: 3 cm (3-4 cm) Effacement: 50% Station: -3 Cervical Consistency: Soft Cervical Position: Anterior Presentation: Cephalic presentation Position: Vertex (occiput) Assessment Heart Rate (FHR): 120 Variability: Moderate Accelerations: Positive Decelerations: None Tocometer Contractions: Yes Frequency: regular, every 1-5 min. Multi-drug resistant Organism: No history of MDRO Assessment/Plan Assessment IUP at 38.4 weeks gestation GBS negative Category I FHR tracing active labor Plan Admit to L&D. OOB ad renata. Diet: clear liquid. Group B Streptococcus (GBS) negative. Labs and intravenous (IV) per unit protocol. Counseled on Pitocin for augmentation of labor (IOL) if necessary. Anesthesia consult per patient's request. Lactated Ringers (LR): Bolus 800 mL, then at 125 mL/hr. Anticipate cervical change and normal spontaneous delivery (). C-S as appropriate. DAVIS REEVES CNM Dec 08, 2020 21:18
[2020-12-08 21:35] LABS: HEMATOCRIT 32.7 % (36.0-47.0); HEMOGLOBIN 10.9 g/dl (12.0-15.5); MEAN CORPUSCULAR HEMOGLOBIN 32.6 pg (27.0-33.0); MEAN CORPUSCULAR HGB CONC 33.3 g/dl (32.0-36.5); MEAN CORPUSCULAR VOLUME 97.9 fl (80.0-96.0); PLATELET COUNT, AUTOMATED 202 10^3/uL (150-450); RED BLOOD COUNT 3.34 10^6/uL (4.00-5.40)
[2020-12-08] MEDS ORDERED: FENTANYL 2MCG/ML ROPIVACAINE 0.2% IN 0.9% NACL 100ML IVBAG As Ordered ONE (21:47)
[2020-12-08] MEDS ORDERED: EPIDURAL COMMENT XX SCH (22:25)
[2020-12-08] MEDS ORDERED: diphenhydrAMINE 50MG/ML VIAL (J1200) IV PRN (22:25)
[2020-12-08] MEDS ORDERED: REFRIGERATOR IV KEYS XX PRN (22:25)
[2020-12-08] MEDS: FENTANYL/ROPIVACAINE/NACL BAG 100 ML EPIDURAL SCH (22:25)
[2020-12-08] MEDS ORDERED: EPIDURAL/PCA KEYS XX PRN (22:25)
[2020-12-08] MEDS ORDERED: ePHEDrine SULFATE 25 MG/5 ML(5MG/ML) SYRINGE IV PRN (22:25)
[2020-12-08] MEDS ORDERED: ONDANSETRON 4MG/2ML VIAL IV PRN (22:25)
[2020-12-08] MEDS ORDERED: NALOXONE INJ 0.4MG/1ML VIAL (J2310 PER 1MG) IV PRN (22:25)
[2020-12-08] MEDS ORDERED: LACTATED RINGER'S 1000 ML IV PRN (22:25)
[2020-12-08] MEDS ORDERED: OXYTOCIN 30 UNITS IN 0.9% NaCl 500ML IV BAG (J2590) As Ordered ONE (23:17)
[2020-12-09] VITALS (75 sets, daily range): BP systolic 76–118; BP diastolic 44–77
[2020-12-09] MEDS ORDERED: LACTATED RINGER'S 1000 ML IV PRN (03:45)
[2020-12-09] MEDS ORDERED: ePHEDrine SULFATE 25 MG/5 ML(5MG/ML) SYRINGE IV PRN (03:45)
--- NOTE | 2020-12-09 06:29 | IPNPDOC ---
Obstetrical Progress Note Date of Service Dec 09, 2020 Subjective Patient is comfortable with her epidural. Assessment Heart Rate (FHR): 140 Variability: Moderate Accelerations: Positive Decelerations: None Heart Rate Tracing: Category I Tocometer Contractions: Yes Frequency: regular Sterile Vaginal Examination Dilation: 5 cm (5-6 cm with nurses last exam) Effacement (%): 70% (75%) Assessment and Plan Age: 35 : 5 Term: 1 Pre-term: 1 Abortions: 2 Livin EGA at Admission: 38.4 Weeks & Days 38.5 Status: Reassuring Group B Streptococcus: Negative Anticipate: Vaginal Delivery Additional Comments IV Pitocin at 10 mu/min. Patient had issues with her BP dropping to 70/40 after epidural with multiple doses of epinephrine given and the rate of the epidural decreased. Pressures are now stable. DAVIS REEVES CNM Dec 09, 2020 06:29
[2020-12-09] MEDS: FENTANYL/ROPIVACAINE/NACL BAG 100 ML EPIDURAL SCH (08:56)
--- NOTE | 2020-12-09 09:10 | IPNPDOC ---
Obstetrical Progress Note Date of Service Dec 09, 2020 Subjective Patient is comfortable with epidural. No LOF/VB. Objective Vital Signs Date Time Temp Pulse Resp B/P (MAP) Pulse Ox O2 Delivery O2 Flow Rate FiO2 12/09/20 07:16 86 110/69 (83) 12/09/20 06:27 98.1 Assessment Heart Rate Tracing: Category I Tocometer Contractions: Yes Frequency: every 2-5 min. Sterile Vaginal Examination Dilation: 6 cm Effacement (%): 80% Station: -2 Cervical Consistency: Soft Cervical Position: Middle (AROM, clear fluid) Postion/Presentation: Cephalic presentation Assessment and Plan Status: Reassuring Anticipate: Vaginal Delivery (Reassuring maternal and status. Early active labor.) MIR BRASWELL DO Dec 09, 2020 09:10
--- NOTE | 2020-12-09 11:58 | IPNPDOC ---
Obstetrical Progress Note Date of Service Dec 09, 2020 Subjective Epidural suboptimally controlling pain. Feeling more pressure. Objective Vital Signs Date Time Temp Pulse Resp B/P (MAP) Pulse Ox O2 Delivery O2 Flow Rate FiO2 12/09/20 10:01 93 94/52 (66) 12/09/20 09:46 98.5 16 Assessment Heart Rate (FHR): 135 Variability: Moderate Accelerations: Positive Decelerations: Variable (intermittent) Tocometer Contractions: Yes Frequency: every 2-5 min. Sterile Vaginal Examination Dilation: 6 cm Effacement (%): 80% Station: -1 Cervical Consistency: Medium Cervical Position: Middle Postion/Presentation: Cephalic presentation Assessment and Plan Status: Reassuring Anticipate: Vaginal Delivery (Continue with current management. Reassuring maternal and status. Anesthesia asked to re-evaluate epidural.) MIR BRASWELL DO Dec 09, 2020 11:58
[2020-12-09] MEDS ORDERED: OXYTOCIN DRIP 30 UNITS in IV 1 EA IV SCH (13:58)
[2020-12-09] MEDS: LR 1,000 ML IV SCH ×2 (13:58→21:58)
[2020-12-09] MEDS ORDERED: ONDANSETRON 4MG/2ML VIAL IV PRN (14:00)
[2020-12-09] MEDS ORDERED: IBUPROFEN 600MG TAB PO PRN (14:00)
[2020-12-09] MEDS ORDERED: MEASLES,MUMPS,RUBELLA VACCINE INJ (MMR-II) (90707) SC SCH (14:00)
[2020-12-09] MEDS ORDERED: RHOGAM 300 MCG (1500 IU) INJ (J2790) IM SCH (14:00)
[2020-12-09] MEDS ORDERED: ACETAMINOPHEN TAB 650MG DOSE (2X325MG) PO PRN (14:00)
[2020-12-09] MEDS ORDERED: IBUPROFEN 800 MG TAB PO PRN (14:00)
--- NOTE | 2020-12-09 14:06 | DNPDOC ---
[facility] Delivery Note Delivery Note DATE OF DELIVERY: 12/09/2020 TIME OF DELIVERY: 1343 Spontaneous vaginal delivery. 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 Evelio Mendoza DO FACOG ANESTHESIA:. Epidural LACERATION: First degree ESTIMATED BLOOD LOSS: 200 mL. FINDINGS: 8 pound 1 ounce (3650 g), male named Franki, Score 8 and 9. DELIVERY SUMMARY: The active phase and second stage of labor progressed in normal fashion. She received Pitocin augmentation throughout her labor course. The head delivered in the TESSA position, and restituted LOT. No nuchal cord was noted. The anterior shoulder delivered with gentle downward guidance and the remainder of the body delivered with ease. The baby was placed on the patient's chest. Delayed cord clamping occurred for approximately 1 minute. The cord was then doubly clamped and cut. IV Pitocin was bolused to actively manage the third stage of labor. The placenta delivered intact without any difficulty within 10 minutes of delivery. The uterine fundus was noted to be firm and 2 cm below the umbilicus. The cervix, vagina, vulva and perineum were inspected. A first-degree laceration was noted and immediately repaired with 3-0 Vicryl in typical fashion. Excellent hemostasis was noted. Sponge, needle and instrument counts were correct per protocol. DO TIFFANY Bahena JONATHAN R. DO Dec 09, 2020 14:06
[2020-12-09] MEDS: ACETAMINOPHEN 500 MG TAB PO PRN ×2 (15:34→21:29)
[2020-12-09] MEDS: DIBUCAINE 1% OINTMENT 30GM TOP PRN (16:16)
[2020-12-09] MEDS: DOCUSATE SODIUM 100MG CAPSULE PO PRN (20:11)
[2020-12-09] MEDS: SLF 3 ML SYR IV SCH (22:00)
[2020-12-10 05:45] VITALS: BP 118/64
[2020-12-10] MEDS: SLF 3 ML SYR IV SCH (06:12)
[2020-12-10] MEDS: ACETAMINOPHEN 500 MG TAB PO PRN ×4 (06:17→23:45)
--- NOTE | 2020-12-10 07:09 | IPNPDOC ---
Progress Note Date of Service: Dec 10, 2020 Day#: 1 Progress Note SUBJECT: Status post . She has been ambulating, voiding spontaneously without issue and tolerating regular diet. Lochia decreasing/minimal. Pain is well-controlled. Denies headache, visual changes, right upper quadrant pain, shortness breath or chest pain. OBJECTIVE: VITAL SIGNS: Within normal limits, afebrile. Alert and oriented times three. Abdomen: Fundus firm at U-2. Soft, NTTP. ASSESSMENT: Status post uncomplicated spontaneous vaginal delivery. Vitals within normal limits, afebrile, hemodynamically stable with no evidence of infection. PLAN: Discharge to home tomorrow Tylenol and Motrin for pain. Routine instructions/precautions reviewed. Routine PP visit in 6 weeks in clinic. VS, I&O, 24H, Fishbone Vital Signs/I&O Vital Signs Date Time Temp Pulse Resp B/P (MAP) Pulse Ox O2 Delivery O2 Flow Rate FiO2 12/10/20 05:45 98.2 70 18 118/64 (82) I&O- Last 24 Hours up to 6 AM 12/10/20 06:00 Intake Total 1775 ml Output Total 2100 ml Balance -325 ml MIR BRASWELL DO Dec 10, 2020 07:09
[2020-12-10] MEDS: PRENATAL VITAMINS CHEWABLE TABLET PO SCH (09:22)
[2020-12-10 10:00] VITALS: BP 109/58
[2020-12-10 18:00] VITALS: BP 115/77
[2020-12-10] MEDS: DOCUSATE SODIUM 100MG CAPSULE PO PRN (23:44)
[2020-12-10] MEDS: DIBUCAINE 1% OINTMENT 30GM TOP PRN (23:50)
[2020-12-11] MEDS: ACETAMINOPHEN 500 MG TAB PO PRN (05:43)
[2020-12-11 06:00] VITALS: BP 112/76
[2020-12-11] MEDS: PRENATAL VITAMINS CHEWABLE TABLET PO SCH (08:59)
== END 2020-12-11 10:45 | disposition home or self-care (01) | DRG 560 ==
LOC: M LDO 19:09 → M LDI 20:51 → M OBS 12-09 16:43
PROVIDERS: ADMIT Advanced Practice Midwife; ATTEND Obstetrics & Gynecology
PROC: 10E0XZZ Delivery of Products of Conception, External Approach (ICD-10-PCS; principal; 2020-12-09)
PROC: 10907ZC Drainage of Amniotic Fluid, Therapeutic from Products of Conception, Via Natural or Artificial Opening (ICD-10-PCS; 2020-12-09)
PROC: 0HQ9XZZ Repair Perineum Skin, External Approach (ICD-10-PCS; 2020-12-09)
DX: O99.844 Bariatric surgery status complicating childbirth (principal); Z37.0 Single live birth; Z3A.38 38 weeks gestation of pregnancy; O70.0 First degree perineal laceration during delivery

== ENCOUNTER → 2020-12-19 | Outpatient (CLI) | payer SELFPAY | LOC: M LABSMTC 10:13 | PROVIDERS: ATTEND Pediatrics | DX: Z11.52 Encounter for screening for COVID-19 (principal) ==

== ENCOUNTER → 2021-01-02 | Outpatient (CLI) | payer SELFPAY | LOC: M LABSMTC 10:06 | PROVIDERS: ATTEND Pediatrics | DX: Z20.822 Contact with and (suspected) exposure to COVID-19 (principal) ==

== ENCOUNTER → 2021-01-15 | Outpatient (CLI) | payer SELFPAY | LOC: M LABSMTC 09:54 | PROVIDERS: ATTEND Pediatrics | DX: Z20.822 Contact with and (suspected) exposure to COVID-19 (principal) ==

== ENCOUNTER → 2021-01-30 | Outpatient (CLI) | payer SELFPAY | LOC: M LABSMTC 11:30 | PROVIDERS: ATTEND Pediatrics | DX: Z20.828 Contact with and (suspected) exposure to other viral communicable diseases (principal) ==

== ENCOUNTER → 2021-02-13 | Outpatient (CLI) | payer SELFPAY | LOC: M LABSMTC 10:15 | PROVIDERS: ATTEND Pediatrics | DX: Z11.52 Encounter for screening for COVID-19 (principal) ==

== ENCOUNTER → 2021-02-27 | Outpatient (CLI) | payer SELFPAY | LOC: M LABSMTC 10:07 | PROVIDERS: ATTEND Pediatrics | DX: Z20.822 Contact with and (suspected) exposure to COVID-19 (principal) ==

== ENCOUNTER → 2021-03-17 | Outpatient (CLI) | payer SELFPAY | LOC: M LABSMTC 09:28 | PROVIDERS: ATTEND Pediatrics | DX: Z20.822 Contact with and (suspected) exposure to COVID-19 (principal) ==

== ENCOUNTER → 2021-09-15 | Outpatient (REF) ==
[~2021-09-15] MED LIST changes: -CEFD1CAP8 PO; +CEFD300C41 PO
== END ==
LOC: M EMP 09:57
PROVIDERS: ATTEND Family Medicine
DX: Z20.822 Contact with and (suspected) exposure to COVID-19 (principal)

== ENCOUNTER → 2021-09-20 | Outpatient (REF) ==
[~2021-09-20] MED LIST changes: +CEFD1CAP8 PO; -CEFD300C41 PO
== END ==
LOC: M EMP 08:44
PROVIDERS: ATTEND Family Medicine
DX: Z20.822 Contact with and (suspected) exposure to COVID-19 (principal)

== ENCOUNTER → 2021-11-01 | Outpatient (REF) ==
[~2021-11-01] MED LIST changes: -CEFD1CAP8 PO; +CEFD300C41 PO
== END ==
LOC: M EMP 10:22
PROVIDERS: ATTEND Family Medicine
DX: Z11.52 Encounter for screening for COVID-19 (principal)

== ENCOUNTER → 2022-02-01 | Outpatient (REF) | payer BC ==
[2022-02-01 16:15] LABS: HEMATOCRIT 40.1 % (36.0-47.0); HEMOGLOBIN 13.5 g/dl (12.0-15.5); MEAN CORPUSCULAR HEMOGLOBIN 32.2 pg (27.0-33.0); MEAN CORPUSCULAR HGB CONC 33.7 g/dl (32.0-36.5); MEAN CORPUSCULAR VOLUME 95.7 fl (80.0-96.0); PLATELET COUNT, AUTOMATED 377 10^3/uL (150-450); RED BLOOD COUNT 4.19 10^6/uL (4.00-5.40); WHITE BLOOD COUNT 8.6 10^3/uL (4.0-10.0)
[2022-02-01 16:21] LABS: ALBUMIN 4.1 GM/DL (3.2-5.2); ALT/SGPT 23 U/L (12-78); BILIRUBIN,TOTAL 0.8 MG/DL (0.2-1.0); BLOOD UREA NITROGEN 13 MG/DL (7-18); CALCIUM LEVEL 9.9 MG/DL (8.5-10.1); CARBON DIOXIDE LEVEL 33 MEQ/L (21-32); CHLORIDE LEVEL 100 MEQ/L (98-107); CREATININE FOR GFR 0.69 MG/DL (0.55-1.30); GLOMERULAR FILTRATION RATE > 60.0 (>60); GLUCOSE, FASTING 93 MG/DL (70-100); POTASSIUM SERUM 4.1 MEQ/L (3.5-5.1); SODIUM LEVEL 136 MEQ/L (136-145); TOTAL PROTEIN 7.2 GM/DL (6.4-8.2)
== END ==
LOC: M SFHCCLAY 11:38
PROVIDERS: ATTEND Nurse Practitioner Family
DX: R06.02 Shortness of breath (principal)

== ENCOUNTER → 2022-02-01 | Outpatient (CLI) | payer BC | LOC: M CLY 08:11 | PROVIDERS: ATTEND Nurse Practitioner Family | DX: R06.02 Shortness of breath (principal) ==

== ENCOUNTER → 2022-03-20 | Outpatient (CLI) | payer BC ==
[2022-03-20 15:52] LABS: HEMATOCRIT 38.5 % (36.0-47.0); HEMOGLOBIN 12.8 g/dl (12.0-15.5); MEAN CORPUSCULAR HGB CONC 33.2 g/dl (32.0-36.5); MEAN CORPUSCULAR VOLUME 99.2 fl (80.0-96.0); PLATELET COUNT, AUTOMATED 306 10^3/uL (150-450); RED BLOOD COUNT 3.88 10^6/uL (4.00-5.40); WHITE BLOOD COUNT 8.9 10^3/uL (4.0-10.0)
[2022-03-20 15:56] LABS: CALCIUM LEVEL 9.2 MG/DL (8.5-10.1); FERRITIN 41 NG/ML (8-252)
[2022-03-20 16:04] LABS: VITAMIN B12 LEVEL 1468 PG/ML
[2022-03-20 16:06] LABS: FOLATE > 24.0 NG/ML
[2022-03-20 16:43] LABS: HEPATITIS C VIRUS ABY INDEX 0.1 INDEX (<0.8); HIV 1&2 SCREEN CENTAUR NEGATIVE (NEGATIVE)
[2022-03-20 18:14] LABS: GC DNA AMPLIFICATION NEGATIVE (NEGATIVE)
== END ==
LOC: M PLALAB 13:36
PROVIDERS: ATTEND Obstetrics & Gynecology
DX: Z34.90 Encounter for supervision of normal pregnancy, unspecified, unspecified trimester (principal); Z36.89 Encounter for other specified antenatal screening

== ENCOUNTER → 2022-03-23 | Outpatient (REF) | LOC: M LABSMTC 09:31 | PROVIDERS: ATTEND Family Medicine | DX: Z20.822 Contact with and (suspected) exposure to COVID-19 (principal) ==

== ENCOUNTER → 2022-03-23 | Outpatient (REF) ==
[2022-03-23 15:30] LABS: RSV AMPLIFICATION NEGATIVE (NEGATIVE)
== END ==
LOC: M LABSMTC 09:50
PROVIDERS: ATTEND Family Medicine
DX: Z20.822 Contact with and (suspected) exposure to COVID-19 (principal)

== ENCOUNTER → 2022-05-02 | Outpatient (CLI) | payer BC | LOC: M CLY 09:29 | PROVIDERS: ATTEND Nurse Practitioner Family | DX: R22.41 Localized swelling, mass and lump, right lower limb (principal); Z96.7 Presence of other bone and tendon implants ==

== ENCOUNTER → 2022-06-07 | Outpatient (CLI) | payer BC | LOC: M WHC 13:05 | PROVIDERS: ATTEND Obstetrics & Gynecology | DX: Z34.90 Encounter for supervision of normal pregnancy, unspecified, unspecified trimester (principal) ==

== ENCOUNTER → 2022-06-26 | Outpatient (REF) | LOC: M EMP 08:26 | PROVIDERS: ATTEND Family Medicine | DX: Z20.822 Contact with and (suspected) exposure to COVID-19 (principal) ==

== ENCOUNTER → 2022-07-12 | Outpatient (CLI) | payer BC | LOC: M CLY 13:45 | PROVIDERS: ATTEND Nurse Practitioner Family | DX: R05.1 Acute cough (principal) ==

== ENCOUNTER → 2022-07-25 | Outpatient (REF) | LOC: M EMP 07:52 | PROVIDERS: ATTEND Family Medicine | DX: Z20.822 Contact with and (suspected) exposure to COVID-19 (principal) ==

== ENCOUNTER → 2022-07-28 | Outpatient (REF) | LOC: M EMP 13:09 | PROVIDERS: ATTEND Family Medicine | DX: Z20.822 Contact with and (suspected) exposure to COVID-19 (principal) ==

== ENCOUNTER → 2022-08-07 | Outpatient (REF) | payer BC ==
[2022-08-07 18:47] LABS: HEMATOCRIT 34.5 % (36.0-47.0); HEMOGLOBIN 11.5 g/dl (12.0-15.5); MEAN CORPUSCULAR HEMOGLOBIN 34.2 pg (27.0-33.0); MEAN CORPUSCULAR HGB CONC 33.3 g/dl (32.0-36.5); MEAN CORPUSCULAR VOLUME 102.7 fl (80.0-96.0); PLATELET COUNT, AUTOMATED 239 10^3/uL (150-450); RED BLOOD COUNT 3.36 10^6/uL (4.00-5.40); WHITE BLOOD COUNT 8.6 10^3/uL (4.0-10.0)
[2022-08-07 19:10] LABS: ALBUMIN 2.8 GM/DL (3.2-5.2); ALT/SGPT 21 U/L (12-78); BILIRUBIN,TOTAL 0.3 MG/DL (0.2-1.0); BLOOD UREA NITROGEN 8 MG/DL (7-18); CALCIUM LEVEL 9.2 MG/DL (8.5-10.1); CARBON DIOXIDE LEVEL 22 MEQ/L (21-32); CHLORIDE LEVEL 104 MEQ/L (98-107); CHOLESTEROL LEVEL 280 MG/DL (<200); CREATININE FOR GFR 0.51 MG/DL (0.55-1.30); FERRITIN 23 NG/ML (8-252); GLOMERULAR FILTRATION RATE > 60.0 (>60); GLUCOSE, FASTING 97 MG/DL (70-100); HDL CHOLESTEROL 80 MG/DL (>40); IRON (FE) 119 UG/DL (50-170); LDL CHOLESTEROL 166 MG/DL (<100); NON-HDL-C 200 MG/DL; SODIUM LEVEL 134 MEQ/L (136-145); TOTAL IRON BINDING CAPACITY 384 UG/DL (250-450); TOTAL PROTEIN 6.2 GM/DL (6.4-8.2); TRIGLYCERIDES LEVEL 168 MG/DL (<150)
[2022-08-07 19:37] LABS: TOTAL 25(OH) VITAMIN D 47.1 NG/ML (30.0-100.0); VITAMIN B12 LEVEL 481 PG/ML (247-911)
[2022-08-07 20:45] LABS: GC DNA AMPLIFICATION NEGATIVE (NEGATIVE)
== END ==
LOC: M SFHCCLAY 08:29
PROVIDERS: ATTEND Nurse Practitioner Family
DX: O99.842 Bariatric surgery status complicating pregnancy, second trimester (principal); Z3A.00 Weeks of gestation of pregnancy not specified

== ENCOUNTER 2022-08-10 14:38 | Outpatient (CLI) | payer BC ==
[~2022-08-10] VITALS: Ht 170.2 cm; Wt 99.3 kg
[2022-08-10 15:10] VITALS: BP 137/77
[2022-08-10] MEDS ORDERED: FOLTTAB9 PO (16:03)
[2022-08-10] MEDS ORDERED: VIT D PO (16:03)
[2022-08-10] MEDS ORDERED: ACET-907 PO (16:03)
[2022-08-10] MEDS ORDERED: HOME MED LIST COMPLETE! XX SCH (16:05)
[2022-08-10 16:32] VITALS: BP 137/76
[2022-08-10] MEDS ORDERED: LIDOCAINE 5% (LIDODERM) PATCH TD ONE (17:00)
== END 2022-08-10 16:45 | disposition home or self-care (01) ==
LOC: M LDO 14:38
PROVIDERS: ATTEND Specialist
DX: O26.893 Other specified pregnancy related conditions, third trimester (principal); R10.2 Pelvic and perineal pain; O09.513 Supervision of elderly primigravida, third trimester; Z3A.29 29 weeks gestation of pregnancy
CPT/HCPCS: 59025; G0378; G0463

== ENCOUNTER → 2022-09-29 | Outpatient (REF) | payer BC ==
[~2022-09-29] MED LIST changes: +ACET-907 PO; +FOLTTAB9 PO; +VIT D PO
== END ==
LOC: M SFHCWAGY 17:14
PROVIDERS: ATTEND Specialist
DX: Z34.83 Encounter for supervision of other normal pregnancy, third trimester (principal)

== ENCOUNTER 2022-10-02 21:45 | Outpatient (CLI) | payer BC ==
[~2022-10-02] VITALS: Ht 170.2 cm; Wt 100.3 kg
[2022-10-02 21:56] VITALS: BP 121/75
[2022-10-02] MEDS ORDERED: HOME MED LIST COMPLETE! XX SCH (22:00)
[2022-10-02 23:07] LABS: APPEARANCE, URINE MANUAL CLEAR (CLEAR); COLOR, URINE MANUAL YELLOW (YELLOW)
[2022-10-02 23:08] LABS: BILIRUBIN, URINE MANUAL NEGATIVE (NEGATIVE); BLOOD URINE MANUAL NEGATIVE (NEGATIVE); GLUCOSE, URINE (UA) MANUAL NEGATIVE (NEGATIVE); KETONE, URINE MANUAL NEGATIVE (NEGATIVE); LEUKOCYTE ESTERASE, URINE MAN POSITIVE (NEGATIVE); NITRITE, URINE MANUAL NEGATIVE (NEGATIVE); PROTEIN, URINE MANUAL NEGATIVE (NEGATIVE); SPECIFIC GRAVITY,URINE MANUAL 1.005 (1.002-1.035); UROBILINOGEN, URINE MANUAL NORMAL (NORMAL)
[2022-10-02 23:16] LABS: BACTERIA, URINE SMALL AMOUNT; HYALINE CAST, URINE NONE SEEN /lpf (0-1); SQUAMOUS EPITHELIAL CELL URINE SMALL AMOUNT /hpf (SMALL AMT)
[2022-10-02 23:25] VITALS: BP 122/76
[2022-10-02] MEDS ORDERED: BETAMETHASONE SOLUSPAN 6MG/ML 5ML VIAL IM SCH (23:45)
[2022-10-03 02:07] VITALS: BP 125/69
== END 2022-10-03 02:45 | disposition home or self-care (01) ==
LOC: M LDO 21:45
PROVIDERS: ATTEND Advanced Practice Midwife
DX: O47.03 False labor before 37 completed weeks of gestation, third trimester (principal); O34.219 Maternal care for unspecified type scar from previous cesarean delivery; O41.03X9 Oligohydramnios, third trimester, other fetus; O99.843 Bariatric surgery status complicating pregnancy, third trimester; Z3A.36 36 weeks gestation of pregnancy
CPT/HCPCS: 59025; 76815; 81000; 87086; 96372; G0378; G0463; J0702

== ENCOUNTER 2022-10-03 15:30 | Outpatient (CLI) | payer BC ==
[~2022-10-03] VITALS: Ht 170.2 cm; Wt 99.8 kg
[2022-10-03 15:45] VITALS: BP 123/69
[2022-10-03] MEDS ORDERED: HOME MED LIST COMPLETE! XX SCH (15:55)
[2022-10-03] MEDS ORDERED: BETAMETHASONE SOLUSPAN 6MG/ML 5ML VIAL IM ONE (17:20)
[2022-10-03 17:48] VITALS: BP 128/64
[2022-10-03] MEDS ORDERED: LACTATED RINGER'S 1000 ML IV ONE (18:40)
[2022-10-03] MEDS ORDERED: ONDANSETRON 4MG 2ML VIAL IV ONE (18:40)
[2022-10-03 19:14] VITALS: BP 111/72
== END 2022-10-03 20:54 | disposition home or self-care (01) ==
LOC: M LDO 15:30
PROVIDERS: ATTEND Obstetrics & Gynecology
DX: O47.03 False labor before 37 completed weeks of gestation, third trimester (principal); Z3A.36 36 weeks gestation of pregnancy
CPT/HCPCS: 59025; 96372; 96374; G0463; J0702; J2405

== ENCOUNTER 2022-10-08 15:19 | Outpatient (CLI) | payer BC ==
[~2022-10-08] VITALS: Ht 170.2 cm; Wt 99.0 kg
[2022-10-08] VITALS (7 sets, daily range): BP systolic 98–140; BP diastolic 55–84
[2022-10-08] MEDS ORDERED: HOME MED LIST COMPLETE! XX SCH (15:30)
[2022-10-08] MEDS ORDERED: LACTATED RINGER'S 1000 ML IV ONE (15:45)
[2022-10-08] MEDS ORDERED: LR 1,000 ML IV SCH (16:45)
== END 2022-10-08 22:58 | disposition home or self-care (01) ==
LOC: M LDO 15:19
PROVIDERS: ATTEND Obstetrics & Gynecology
DX: O47.1 False labor at or after 37 completed weeks of gestation (principal); O09.513 Supervision of elderly primigravida, third trimester; Z3A.37 37 weeks gestation of pregnancy
CPT/HCPCS: 59025; G0463

== ENCOUNTER 2022-10-12 20:43 | Outpatient (CLI) | payer BC ==
[~2022-10-12] VITALS: Ht 170.2 cm; Wt 100.4 kg
[2022-10-12 20:57] VITALS: BP 120/71
[2022-10-12] MEDS ORDERED: HOME MED LIST COMPLETE! XX SCH (21:00)
[2022-10-12 22:42] VITALS: BP 124/70
[2022-10-12 23:46] VITALS: BP 126/68
[2022-10-13 00:27] VITALS: BP 129/74
[2022-10-19] MEDS ORDERED: [UNRECOGNIZED DRUG - CODE] PO (16:30)
[2022-10-19] MEDS ORDERED: CALC260T PO (16:30)
[2022-11-03] MEDS ORDERED: VITA100093 PO (07:42)
== END 2022-10-13 00:40 | disposition home or self-care (01) ==
LOC: M LDO 20:43
PROVIDERS: ATTEND Specialist
DX: O47.1 False labor at or after 37 completed weeks of gestation (principal); Z3A.38 38 weeks gestation of pregnancy
CPT/HCPCS: 59025; G0463

== ENCOUNTER → 2022-10-12 | Outpatient (CLI) | payer BC | LOC: M RAD 06:30 | PROVIDERS: ATTEND Advanced Practice Midwife | DX: O26.843 Uterine size-date discrepancy, third trimester (principal); Z3A.39 39 weeks gestation of pregnancy ==

== ENCOUNTER → 2022-11-12 | Outpatient (CLI) | payer BC ==
[~2022-11-12] MED LIST changes: +CALC260T PO; +VITA100093 PO; +[UNRECOGNIZED DRUG - CODE] PO
== END ==
LOC: M LABSMTC 09:00
PROVIDERS: ATTEND Anesthesiology
DX: Z01.812 Encounter for preprocedural laboratory examination (principal); Z11.52 Encounter for screening for COVID-19

== ENCOUNTER 2022-11-17 06:08 | Day surgery (SDC) | payer BC ==
[~2022-11-17] VITALS: Ht 170.2 cm; Wt 90.9 kg
[2022-11-17] MEDS ORDERED: LR 1,000 ML IV SCH ×2 (06:40→08:25)
[2022-11-17 06:42] LABS: HEMATOCRIT 42.1 % (36.0-47.0); HEMOGLOBIN 13.6 g/dl (12.0-15.5); MEAN CORPUSCULAR HEMOGLOBIN 32.6 pg (27.0-33.0); MEAN CORPUSCULAR HGB CONC 32.3 g/dl (32.0-36.5); PLATELET COUNT, AUTOMATED 275 10^3/uL (150-450); RED BLOOD COUNT 4.17 10^6/uL (4.00-5.40); WHITE BLOOD COUNT 6.4 10^3/uL (4.0-10.0)
[2022-11-17] MEDS ORDERED: fentaNYL 100 MCG/2 ML INJECTION As Ordered ONE ×2 (07:10→08:07)
[2022-11-17] MEDS ORDERED: propofoL 200 MG/20 ML VIAL As Ordered ONE (07:10)
[2022-11-17] MEDS ORDERED: MIDAZOLAM INJ 2MG/2ML VIAL As Ordered ONE (07:11)
[2022-11-17] MEDS ORDERED: SUGAMMADEX SODIUM 500 MG/5 ML VIAL (BRIDION) As Ordered ONE (07:11)
[2022-11-17] MEDS ORDERED: ONDANSETRON 4MG 2ML VIAL As Ordered ONE ×2 (07:11→08:30)
[2022-11-17] MEDS ORDERED: ROCURONIUM BROMIDE 50MG/5ML VIAL As Ordered ONE (07:11)
[2022-11-17] MEDS ORDERED: KETOROLAC 60MG 2ML VIAL As Ordered ONE (07:11)
[2022-11-17] MEDS ORDERED: LIDOCAINE 2% 100MG/5ML SDV (FOR ANES.) As Ordered ONE (07:11)
[2022-11-17] MEDS ORDERED: BUPIVACAINE HCL 0.25% 30ML VIAL As Ordered ONE (07:14)
[2022-11-17] MEDS ORDERED: ACETAMINOPHEN 1000MG 100ML IV BAG As Ordered ONE (08:13)
[2022-11-17] MEDS ORDERED: oxyCODONE 5MG TAB PO PRN (08:25)
[2022-11-17] MEDS ORDERED: HYDROMORPHONE HCL 0.5 MG/ 0.5 ML SYRINGE IV PRN (08:25)
[2022-11-17] MEDS ORDERED: METOCLOPRAMIDE INJ 10MG/2ML VIAL IV PRN (08:25)
[2022-11-17] MEDS ORDERED: fentaNYL 100 MCG/2 ML INJECTION IV PRN (08:25)
[2022-11-17] MEDS ORDERED: ONDANSETRON 4MG 2ML VIAL IV PRN (08:25)
[2022-11-17] MEDS ORDERED: PERCOCET 5MG/325MG TAB PO PRN (10:10)
[2022-11-17 10:30] VITALS: BP 115/69
== END 2022-11-17 10:32 | disposition home or self-care (01) ==
LOC: M SDC 06:08
PROVIDERS: ATTEND Obstetrics & Gynecology
DX: Z30.2 Encounter for sterilization (principal); Z88.0 Allergy status to penicillin; Z79.899 Other long term (current) drug therapy
CPT/HCPCS: 36415; 58661; 81025; 85027; 86850; 86900; 86901; 88302; J0131; J1100; J1885; J2250; J2405; J3010; S0020

== ENCOUNTER → 2023-03-13 | Outpatient (REF) | LOC: M EMP 10:07 | PROVIDERS: ATTEND Family Medicine | DX: Z20.822 Contact with and (suspected) exposure to COVID-19 (principal) ==

== ENCOUNTER → 2023-04-25 | Outpatient (REF) | payer BC ==
[2023-04-25 11:33] LABS: BASO # 0.1 10^3/uL (0.0-0.2); BASO % 0.8 % (0.0-1.0); EOS # 0.2 10^3/uL (0.0-0.5); EOS % 3.4 % (0.0-3.0); HEMATOCRIT 42.2 % (36.0-47.0); HEMOGLOBIN 14.1 g/dl (12.0-15.5); LYMPH % 33.3 % (24.0-44.0); MEAN CORPUSCULAR HEMOGLOBIN 32.1 pg (27.0-33.0); MEAN CORPUSCULAR HGB CONC 33.4 g/dl (32.0-36.5); MEAN CORPUSCULAR VOLUME 96.1 fl (80.0-96.0); MONO # 0.5 10^3/uL (0.0-0.8); MONO % 7.7 % (2.0-8.0); NEUTROPHILS # 3.3 10^3/uL (1.5-8.5); NEUTROPHILS % 54.5 % (36.0-66.0); PLATELET COUNT, AUTOMATED 318 10^3/uL (150-450); RED BLOOD COUNT 4.39 10^6/uL (4.00-5.40); WHITE BLOOD COUNT 6.1 10^3/uL (4.0-10.0)
[2023-04-25 11:55] LABS: ALBUMIN 3.9 G/DL (3.2-5.2); ALKALINE PHOSPHATASE 122 U/L (46-116); ALT/SGPT 10 U/L (7.0-40); AST/SGOT < 8 U/L (<34); BILIRUBIN,TOTAL 0.6 MG/DL (0.3-1.2); BLOOD UREA NITROGEN 15 MG/DL (9-23); CALCIUM LEVEL 9.1 MG/DL (8.5-10.1); CARBON DIOXIDE LEVEL 25 MMOL/L (20-31); CHLORIDE LEVEL 106 MMOL/L (98-107); CHOLESTEROL LEVEL 182 MG/DL (<200); CHOLESTEROL RISK RATIO 2.54 (<5); CREATININE FOR GFR 0.74 MG/DL (0.55-1.30); GLOMERULAR FILTRATION RATE > 60.0 (>60); GLUCOSE, FASTING 63 MG/DL (60-100); HDL CHOLESTEROL 71.5 MG/DL (>40); LDL CHOLESTEROL 95.1 MG/DL (<100); NON-HDL-C 110.5 MG/DL; POTASSIUM SERUM 4.1 MMOL/L (3.5-5.1); SODIUM LEVEL 140 MMOL/L (136-145); TOTAL PROTEIN 6.7 G/DL (5.7-8.2); TRIGLYCERIDES LEVEL 77 MG/DL (<150)
== END ==
LOC: M SFHCCLAY 07:19
PROVIDERS: ATTEND Nurse Practitioner Family
DX: N94.6 Dysmenorrhea, unspecified (principal); Z98.84 Bariatric surgery status

== ENCOUNTER → 2023-05-07 | Outpatient (REF) | payer BC | LOC: M SFHCWAGY 10:27 | PROVIDERS: ATTEND Obstetrics & Gynecology | DX: Z12.4 Encounter for screening for malignant neoplasm of cervix (principal) | CPT/HCPCS: 87624; G0123 ==

== ENCOUNTER → 2023-08-10 | Outpatient (REF) | payer BC ==
[~2023-08-10] MED LIST changes: -CEFD300C41 PO; +CEFD300C42 PO; +VYVA40CA3 PO
== END ==
LOC: M SFHCCLAY 08:55
PROVIDERS: ATTEND Nurse Practitioner Family
DX: Z98.84 Bariatric surgery status (principal); Z53.8 Procedure and treatment not carried out for other reasons

== ENCOUNTER 2023-08-17 13:45 | Day surgery (SDC) | payer BC ==
[~2023-08-17] VITALS: Ht 170.2 cm; Wt 91.6 kg
[~2023-08-17 13:45] MED LIST changes: +LR 1,000 ML IV SCH
[2023-08-17] MEDS ORDERED: MIDAZOLAM INJ 2MG/2ML VIAL As Ordered ONE (15:00)
[2023-08-17] MEDS ORDERED: propofoL 200 MG/20 ML VIAL As Ordered ONE (15:00)
[2023-08-17] MEDS ORDERED: ROCURONIUM BROMIDE 50MG/5ML VIAL As Ordered ONE (15:00)
[2023-08-17] MEDS ORDERED: LIDOCAINE 2% 100MG/5ML SDV (FOR ANES.) As Ordered ONE (15:00)
[2023-08-17] MEDS ORDERED: fentaNYL 100 MCG/2 ML INJECTION As Ordered ONE (15:00)
[2023-08-17 15:49] LABS: HEMATOCRIT 40.8 % (36.0-47.0); HEMOGLOBIN 13.5 g/dl (12.0-15.5); MEAN CORPUSCULAR HEMOGLOBIN 32.3 pg (27.0-33.0); MEAN CORPUSCULAR HGB CONC 33.1 g/dl (32.0-36.5); MEAN CORPUSCULAR VOLUME 97.6 fl (80.0-96.0); PLATELET COUNT, AUTOMATED 357 10^3/uL (150-450); RED BLOOD COUNT 4.18 10^6/uL (4.00-5.40); WHITE BLOOD COUNT 7.2 10^3/uL (4.0-10.0)
[2023-08-17] MEDS ORDERED: ONDANSETRON 4MG 2ML VIAL As Ordered ONE (15:54)
[2023-08-17] MEDS ORDERED: ACETAMINOPHEN 1000MG 100ML IV BAG As Ordered ONE (15:57)
[2023-08-17] MEDS ORDERED: KETOROLAC 60MG 2ML VIAL As Ordered ONE (16:05)
[2023-08-17] MEDS ORDERED: ONDANSETRON 4MG 2ML VIAL IV PRN (16:25)
[2023-08-17] MEDS ORDERED: oxyCODONE 5MG TAB PO PRN (16:25)
[2023-08-17] MEDS ORDERED: HYDROMORPHONE HCL 0.5 MG/ 0.5 ML SYRINGE IV PRN (16:25)
[2023-08-17] MEDS ORDERED: fentaNYL 100 MCG/2 ML INJECTION IV PRN (16:25)
[2023-08-17] MEDS ORDERED: LR 1,000 ML IV SCH (16:25)
[2023-08-17 17:24] VITALS: BP 115/70; TEMP 97.1; O2SAT 99
== END 2023-08-17 17:52 | disposition home or self-care (01) ==
LOC: M SDC 13:45
PROVIDERS: ATTEND Obstetrics & Gynecology
DX: N93.8 Other specified abnormal uterine and vaginal bleeding (principal); R93.89 Abnormal findings on diagnostic imaging of other specified body structures; F90.9 Attention-deficit hyperactivity disorder, unspecified type; Z98.51 Tubal ligation status; Z79.899 Other long term (current) drug therapy; Z87.891 Personal history of nicotine dependence; Z88.0 Allergy status to penicillin; Z88.1 Allergy status to other antibiotic agents
CPT/HCPCS: 36415; 58558; 85027; 86850; 86900; 86901; 88305; J0131; J1100; J1885; J2250; J2405; J3010

== ENCOUNTER → 2024-03-19 | Outpatient (REF) | payer BC ==
[~2024-03-19] MED LIST changes: +CEFD1CAP9 PO; -CEFD300C42 PO; -LR 1,000 ML IV SCH
[2024-03-19 18:57] LABS: BASO # 0.1 10^3/uL (0.0-0.2); BASO % 0.7 % (0.0-1.0); EOS # 0.2 10^3/uL (0.0-0.5); EOS % 2.2 % (0.0-3.0); HEMATOCRIT 42.3 % (36.0-47.0); HEMOGLOBIN 14.3 g/dl (12.0-15.5); LYMPH # 2.7 10^3/uL (1.5-5.0); LYMPH % 32.9 % (24.0-44.0); MEAN CORPUSCULAR HEMOGLOBIN 32.2 pg (27.0-33.0); MEAN CORPUSCULAR HGB CONC 33.8 g/dl (32.0-36.5); MEAN CORPUSCULAR VOLUME 95.3 fl (80.0-96.0); MONO # 0.6 10^3/uL (0.0-0.8); MONO % 7.9 % (2.0-8.0); NEUTROPHILS # 4.5 10^3/uL (1.5-8.5); NEUTROPHILS % 55.7 % (36.0-66.0); PLATELET COUNT, AUTOMATED 317 10^3/uL (150-450); RED BLOOD COUNT 4.44 10^6/uL (4.00-5.40); WHITE BLOOD COUNT 8.2 10^3/uL (4.0-10.0)
[2024-03-19 19:02] LABS: HEMOGLOBIN A1c 4.9 % (4.0-6.0)
[2024-03-19 19:08] LABS: FERRITIN 9.4 NG/ML (7.3-270.7)
[2024-03-19 19:09] LABS: FOLATE > 24.00 NG/ML (>5.4)
[2024-03-19 19:10] LABS: IRON (FE) 146 UG/DL (50-170)
[2024-03-19 19:12] LABS: VITAMIN B12 LEVEL 380 PG/ML (211-911)
[2024-03-19 19:13] LABS: PERCENT SATURATION 40.4 % (13.2-45.0); TOTAL IRON BINDING CAPACITY 361 UG/DL (250-425)
[2024-03-19 19:14] LABS: ALBUMIN 4.2 G/DL (3.2-5.2); ALKALINE PHOSPHATASE 113 U/L (46-116); ALT/SGPT 13 U/L (7.0-40); AST/SGOT 9 U/L (<34); BILIRUBIN,TOTAL 0.5 MG/DL (0.3-1.2); BLOOD UREA NITROGEN 19 MG/DL (9-23); CALCIUM LEVEL 9.8 MG/DL (8.5-10.1); CARBON DIOXIDE LEVEL 21 MMOL/L (20-31); CHLORIDE LEVEL 107 MMOL/L (98-107); CHOLESTEROL LEVEL 180 MG/DL (<200); CHOLESTEROL RISK RATIO 2.72 (<5); CREATININE FOR GFR 0.83 MG/DL (0.55-1.30); GLOMERULAR FILTRATION RATE > 60.0 (>60); GLUCOSE, FASTING 96 MG/DL (60-100); HDL CHOLESTEROL 66.1 MG/DL (>40); LDL CHOLESTEROL 93.5 MG/DL (<100); NON-HDL-C 113.9 MG/DL; POTASSIUM SERUM 4.5 MMOL/L (3.5-5.1); SODIUM LEVEL 138 MMOL/L (136-145); TOTAL PROTEIN 7.1 G/DL (5.7-8.2); TRIGLYCERIDES LEVEL 102 MG/DL (<150)
== END ==
LOC: M SFHCCLAY 13:31
PROVIDERS: ATTEND Nurse Practitioner Family
DX: Z98.84 Bariatric surgery status (principal)

== ENCOUNTER 2025-09-18 07:49 | Emergency (ER) | payer BC ==
[~2025-09-18] VITALS: Ht 170.2 cm; Wt 81.8 kg
[2025-09-18 11:17] VITALS: BP 118/78; TEMP 97.9; O2SAT 100
== END 2025-09-18 11:18 | disposition home or self-care (01) ==
LOC: M ED 07:49
DX: M77.12 Lateral epicondylitis, left elbow (principal); F90.9 Attention-deficit hyperactivity disorder, unspecified type; Z88.0 Allergy status to penicillin; Z88.1 Allergy status to other antibiotic agents; Z88.6 Allergy status to analgesic agent